=== PATIENT | male | born 1970 | race Caucasian/White ===

== ENCOUNTER 2018-06-26 07:46 | Emergency (ER) | payer BC ==
[~2018-06-26] VITALS: Ht 185.4 cm; Wt 97.5 kg
[2018-06-26 07:46] VITALS: BP_SYST 152
[~2018-06-26 07:46] MED LIST: LOSA50TA3 PO
--- NOTE | 2018-06-26 07:46 | NUR ---
BROUGHT BACK TO BED #8 AND TRIAGED. REPORT GIVEN TO BRIAN
--- NOTE | 2018-06-26 08:01 | NUR ---
Patient presented to the ED with sight chest pain and feelings of restlessness. He checked his blood pressure at home and said it kept spiking. Patient states that he woke up around 3 am, and wasn't able to go back to sleep. He said he felt like the [place]que[place] were caving in on him, so he had to go outside for relief. He states that he would try to lie down in bed, but wasn't able to rest. He also states that his left foot began to swell and tingle, with some pain. He said his foot no longer bothers him. He said he has tension in his neck. Aline [email or web address]. Patient is in bed at lowest position. Will continue to monitor. Addendum: 06/26/18 at 0816 by CHARISSE Patient states that he feels like he's drowning. Patient states he took Buspar at 4am this morning. He says he usually takes it once every 2 weeks; sometimes he'll take it 3 days in a row. Patient states that 2 doctors have told him he had a heart attack and two doctors have told him that he didn't.
--- NOTE | 2018-06-26 08:10 | NUR ---
ER at bedside examining patient.
--- NOTE | 2018-06-26 08:34 | NUR ---
Patient given written and verbal discharge instructions and verbalizes understanding. ER MD discussed with patient the results and treatment provided. Patient in stable condition. ID arm band removed. Rx of Atarax given. Patient educated on pain management and to follow up with PMD. Pain Scale 0/10. Opportunity for questions provided and answered. Medication side effect fact sheet provided.
[2018-06-26 08:35] VITALS: BP_SYST 151
== END 2018-06-26 08:34 | disposition home or self-care (01) ==
LOC: SED 07:46
DX: F41.9 Anxiety disorder, unspecified (principal); J45.909 Unspecified asthma, uncomplicated; I10 Essential (primary) hypertension; Z86.79 Personal history of other diseases of the circulatory system
CPT/HCPCS: 93005; 99283; 99284

== ENCOUNTER 2019-06-26 02:37 | Emergency (ER) | payer BC ==
[~2019-06-26] VITALS: Ht 185.4 cm; Wt 98.9 kg
[2019-06-26 02:39] VITALS: BP_SYST 170
[2019-06-26] MEDS ORDERED: LISINOPRIL 10 MG TABLET (PRINIVIL) PO ONE (03:45)
[2019-06-26] MEDS ORDERED: LISINOPRIL 10 MG TABLET (PRINIVIL) ONE (04:16)
[2019-06-26 04:48] VITALS: BP_SYST 145
== END 2019-06-26 04:48 | disposition home or self-care (01) ==
LOC: SED 02:37
DX: I10 Essential (primary) hypertension (principal); J45.909 Unspecified asthma, uncomplicated
CPT/HCPCS: 99283

== ENCOUNTER 2019-08-12 03:32 | Emergency (ER) | payer BC ==
[~2019-08-12] VITALS: Ht 185.4 cm; Wt 102.1 kg
[2019-08-12 03:35] VITALS: BP_SYST 160
--- NOTE | 2019-08-12 03:35 | NUR ---
Placed in room 2 . Placed on toddler caregiver, blood pressure machine and pulse oximeter. To gown for exam. Side rails up.
--- NOTE | 2019-08-12 03:36 | NUR ---
Pt came home c/o of high blood pressure at 0300, lightheadness, headache. Pt reports eating dinner last night at 6pm and he began having acid reflux at 11pm and has vomited three times tonight. Pt states when he took his BP at 0300 he just finished vomited and coughing. Pt denies CP, SOB, pain. Pt reports being bloated in his abdomen. Hx heart attack, high blood pressure Medications: Lisinopril, Buspar (not compliant with medications) Sx endoscopy, angiogram
--- NOTE | 2019-08-12 03:50 | NUR ---
ER Dr. Merida at bedside examining patient.
[2019-08-12] MEDS ORDERED: NACL 0.9% 1,000 ML IV ONE (03:56)
--- NOTE | 2019-08-12 03:59 | NUR ---
LAB AT BEDSIDE DRAWING BLOOD.
[2019-08-12] MEDS ORDERED: PANTOPRAZOLE SODIUM 40 MG/VIAL (PROTONIX) IVP ONE (04:00)
[2019-08-12] MEDS ORDERED: MAG HYDROX/AL HYDROX/SIMETH 30 ML, DICYCLOMINE HCL 20 MG, LIDOCAINE VISCOUS 2% 15ML (PO... PO ONE ×3 (04:00)
[2019-08-12] MEDS ORDERED: ONDANSETRON HCL 4 MG/2 ML VIAL IVP ONE (04:00)
[2019-08-12 04:06] LABS: BASOPHILS % (AUTO) 0.3 % (0.0-2.0); EOSINOPHILS # (AUTO) 0.2 K/uL (0.0-0.4); HEMOGLOBIN 13.6 g/dL (14.0-18.0); LYMPHOCYTES # (AUTO) 2.4 K/uL (1.0-5.5); LYMPHOCYTES % (AUTO) 40.7 % (20.5-51.5); MEAN CORPUSCULAR HEMOGLOBIN 32 pg (27-31); MEAN CORPUSCULAR HGB CONC 34 % (32-36); MEAN CORPUSCULAR VOLUME 94 fL (79.0-98.0); MONOCYTES # (AUTO) 0.5 K/uL (0.0-1.0); MONOCYTES % (AUTO) 8.4 % (1.7-9.3); NEUTROPHILS # (AUTO) 2.8 K/uL (1.8-7.7); NEUTROPHILS % (AUTO) 47.6 % (40.0-70.0); PLATELET COUNT (AUTO) 165 K/uL (130-430); RED BLOOD CELL COUNT(AUTO) 4.27 MIL/uL (4.2-6.2); RED CELL DISTRIBUTION WIDTH 12.4 % (9.0-15.0); WHITE BLOOD COUNT (AUTO) 5.9 K/uL (4.8-10.8)
[2019-08-12 04:17] LABS: CALCIUM 8.3 mg/dL (8.4-11.0); CREATININE 0.99 mg/dL (0.55-1.30); POTASSIUM 3.5 mmol/L (3.5-5.1)
--- NOTE | 2019-08-12 04:18 | NUR ---
# 20 gauge angiocath placed to RAC. Use of asceptic technique. Opsite placed over site. Blood return noted. Flushed with 10 cc of normal saline. No evidence of infiltration noted. Patient tolerated well.
[2019-08-12 04:23] LABS: ALBUMIN 3.7 g/dL (3.4-4.8); TOTAL BILIRUBIN 0.4 mg/dL (0.0-1.0)
--- NOTE | 2019-08-12 04:25 | NUR ---
Patient refused Zofran 4mg, states he is not nauseous. Pt tolerated protonix and GI cocktail well. NS IV fluids running at 100mls/hr.
[2019-08-12] MEDS ORDERED: LIDOCAINE VISCOUS 2%, 15 ML UDC ONE (04:35)
--- NOTE | 2019-08-12 04:43 | NUR ---
HYDRALAZINE 5MG GIVEN PER MD VERBAL ORDER. WILL CONTINUTE TO MONITOR BP. PRE AND POST STRIP PRINTED.
[2019-08-12] MEDS ORDERED: hydrALAZINE HCL 20 MG/ML VIAL IVP ONE (04:45)
--- NOTE | 2019-08-12 05:04 | NUR ---
PATIENT AMBULATED WITH STEADY GAIT TO RESTROOM. DENIES FEELING LIGHTHEAD OR UNEASY.
[2019-08-12 05:42] VITALS: BP_SYST 149
== END 2019-08-12 06:00 | disposition home or self-care (01) ==
LOC: SED 03:32
DX: I10 Essential (primary) hypertension (principal); K21.9 Gastro-esophageal reflux disease without esophagitis; R11.2 Nausea with vomiting, unspecified; I25.2 Old myocardial infarction
CPT/HCPCS: 36415; 80053; 83690; 83880; 84484; 85025; 93005; 96361; 96374; 96375; 99284; C9113; J0360; J2001; J7030; J2405

== ENCOUNTER 2019-08-15 03:19 | Emergency (ER) | payer BC ==
[~2019-08-15] VITALS: Ht 185.4 cm; Wt 102.5 kg
[2019-08-15 03:25] VITALS: BP_SYST 145
--- NOTE | 2019-08-15 03:45 | NUR ---
Placed in room 8 . Placed on cardiac monitor technician, blood pressure machine and pulse oximeter. To gown for exam. Side rails up. Report given to GIANNA DODSON.
--- NOTE | 2019-08-15 03:54 | NUR ---
ER at bedside examining patient.
--- NOTE | 2019-08-15 04:00 | NUR ---
Pt presents to the ER for acid reflux and multiple episodes of HBP x tonight. Pt states he is currently nauses. Pt recently came to ER at [facility] for HPB, pt takes his BP at home. Denies chest pain, sob, v/d.
[2019-08-15] MEDS ORDERED: MAG-AL HYDROX/SIMETH 30 ML UDC PO ONE (04:30)
--- NOTE | 2019-08-15 04:36 | NUR ---
Patient given written and verbal discharge instructions and verbalizes understanding. ER MD discussed with patient the results and treatment provided. Patient in stable condition. ID arm band removed. Pt given aftercare instructions on patient education discharge
[2019-08-15 04:42] VITALS: BP_SYST 136
== END 2019-08-15 04:36 | disposition home or self-care (01) ==
LOC: SED 03:19
DX: F41.9 Anxiety disorder, unspecified (principal); K21.9 Gastro-esophageal reflux disease without esophagitis; I10 Essential (primary) hypertension; I25.2 Old myocardial infarction
CPT/HCPCS: 99282

== ENCOUNTER 2020-11-30 01:18 | Emergency (ER) | payer BC, SELFPAY ==
[~2020-11-30] VITALS: Ht 185.4 cm; Wt 103.4 kg
[2020-11-30 01:35] VITALS: BP_SYST 149
--- NOTE | 2020-11-30 01:45 | NUR ---
PT TO BED 3 C/O SOB HX HTN; ON MONITOR AND PULSE OX AOX4 RESP EVEN; SAT 99% RM AIR
[2020-11-30 02:22] LABS: BASOPHILS % (AUTO) 0.8 % (0.0-2.0); EOSINOPHILS # (AUTO) 0.3 K/uL (0.0-0.4); EOSINOPHILS % (AUTO) 6.2 % (0.0-4.0); HEMATOCRIT 38.6 % (36-54); HEMOGLOBIN 13.3 g/dL (14.0-18.0); LYMPHOCYTES # (AUTO) 1.9 K/uL (1.0-5.5); LYMPHOCYTES % (AUTO) 41.3 % (20.5-51.5); MEAN CORPUSCULAR HEMOGLOBIN 33 pg (27-31); MEAN CORPUSCULAR HGB CONC 34 % (32-36); MEAN CORPUSCULAR VOLUME 95 fL (79.0-98.0); MONOCYTES # (AUTO) 0.4 K/uL (0.0-1.0); MONOCYTES % (AUTO) 8.8 % (1.7-9.3); NEUTROPHILS % (AUTO) 42.9 % (40.0-70.0); PLATELET COUNT (AUTO) 160 K/uL (130-430); RED BLOOD CELL COUNT(AUTO) 4.08 MIL/uL (4.2-6.2); RED CELL DISTRIBUTION WIDTH 12.7 % (9.0-15.0); WHITE BLOOD COUNT (AUTO) 4.6 K/uL (4.8-10.8)
[2020-11-30 02:23] LABS: CALCIUM 8.4 mg/dL (8.4-11.0); CREATININE 0.95 mg/dL (0.55-1.30); POTASSIUM 3.5 mmol/L (3.5-5.1)
--- NOTE | 2020-11-30 02:29 | NUR ---
LABS DRAWN DR BROWNLEE TO EXAM EKG DONE URINE TO LAB AND COVID TEST
[2020-11-30 02:32] LABS: ALBUMIN 3.7 g/dL (3.4-4.8); TOTAL BILIRUBIN 0.6 mg/dL (0.0-1.0)
--- NOTE | 2020-11-30 04:22 | NUR ---
AWAITING PT LAB RESULTS DR BROWNLEE AWARE
[2020-11-30 05:48] VITALS: BP_SYST 130
--- NOTE | 2020-11-30 07:07 | NUR ---
PT SIGNED OUT AMA AGAINST MEDICAL ADVICE
== END 2020-11-30 07:08 | disposition left against medical advice (07) ==
LOC: SED 01:18
DX: R06.02 Shortness of breath (principal); I10 Essential (primary) hypertension; J45.909 Unspecified asthma, uncomplicated; Z20.822 Contact with and (suspected) exposure to COVID-19
CPT/HCPCS: 36415; 71045; 80053; 83880; 84484; 85025; 93005; 99285